=== PATIENT | female | born 1975 | race African-American/Black ===

== ENCOUNTER 2018-11-23 12:10 | Emergency (ER) | payer OTHER ==
[~2018-11-23] VITALS: Ht 167.6 cm; Wt 100.0 kg
[2018-11-23] MEDS ORDERED: ACETAMINOPHEN 325MG TABLET PO ONE (13:30)
[2018-11-23] MEDS ORDERED: CLONIDINE 0.1MG TABLET PO ONE (13:30)
[2018-11-23 13:53] LABS: CLARITY URINE CLEAR (CLEAR); COLOR URINE YELLOW (YELLOW); KETONES URINE NEGATIVE (NEGATIVE); LEUKOCYTE ESTERASE URINE NEGATIVE (NEGATIVE); NITRITE URINE NEGATIVE (NEGATIVE); OCCULT BLOOD URINE NEGATIVE (NEGATIVE); PH URINE 5.5 (4.5-8.0); PROTEIN URINE NEGATIVE (NEGATIVE); SPECIFIC GRAVITY URINE 1.016 (1.005-1.030)
[2018-11-23 14:05] LABS: BASOPHILS % 0.3 % (0.0-2.0); EOSINOPHILS % 1.5 % (0.0-5.0); HEMATOCRIT. 38.7 % (36.0-48.0); HEMOGLOBIN. 12.9 g/dL (12.0-16.0); LYMPHOCYTES % 24.8 % (20.0-50.0); MEAN CORPUSCULAR HEMOGLOBIN 29.7 pg (28.0-32.0); MEAN CORPUSCULAR VOLUME 89.2 fL (81.0-99.0); MEAN PLATELET VOLUME 10.3 fl (7.4-10.4); NEUTROPHILS % 67.4 % (40.0-76.0); PLATELET 137 x1000/uL (130-400); RED BLOOD CELL COUNT 4.34 mill/uL (4.2-5.4); RED CELL DISTRIBUTION WIDTH 14.5 % (11.6-14.6)
[2018-11-23 14:09] LABS: CHLORIDE 107 mEq/L (98-107)
[2018-11-23 14:14] LABS: HCG SCREEN NEGATIVE
[2018-11-23] MEDS ORDERED: IBUPROFEN 600MG TABLET PO ONE (19:45)
[2018-11-23 22:12] VITALS: BP 144/80
== END 2018-11-23 22:22 | disposition short-term general hospital (02) ==
LOC: ER 12:20 → CANBEDREQ 16:45 → ER 22:22
DX: I10 Essential (primary) hypertension (principal); E11.65 Type 2 diabetes mellitus with hyperglycemia; Z79.4 Long term (current) use of insulin; Z79.84 Long term (current) use of oral hypoglycemic drugs
CPT/HCPCS: 36415; 71045; 81025; 82962; 83880; 84484; 84703; 93005; 99285

== ENCOUNTER 2021-08-02 13:36 | Inpatient (IN) | payer OTHER ==
[~2021-08-02] VITALS: Ht 152.4 cm; Wt 158.3 kg
[2021-08-02] MEDS ORDERED: SODIUM CHLORIDE 0.9% 1,000 ML IV ONE (13:45)
[2021-08-02 14:57] LABS: BASOPHILS % 0.3 % (0.0-2.0); EOSINOPHILS % 0.1 % (0.0-5.0); HEMATOCRIT. 41.1 % (36.0-48.0); LYMPHOCYTES % 11.3 % (20.0-50.0); MEAN CORPUSCULAR HEMOGLOBIN 25.7 pg (28.0-32.0); MEAN CORPUSCULAR VOLUME 81.3 fL (81.0-99.0); MONOCYTES % 4.1 % (2.0-8.0); NEUTROPHILS % 84.2 % (40.0-76.0); RED BLOOD CELL COUNT 5.05 mill/uL (4.2-5.4); RED CELL DISTRIBUTION WIDTH 15.7 % (11.6-14.6)
[2021-08-02 15:05] LABS: CHLORIDE 94 mEq/L (98-107)
[2021-08-02 15:22] LABS: PLATELET 147 x1000/uL (130-400)
[2021-08-02] MEDS ORDERED: ETOMIDATE 2MG/ML 10ML VIAL IV ONE (16:15)
[2021-08-02] MEDS ORDERED: MIDAZOLAM HCL 100 MG in DEXT 5% WATER 80 ML IV ONE (16:15)
[2021-08-02] MEDS ORDERED: VECURONIUM BROMIDE 10 MG/VIAL IV ONE ×2 (16:30→18:30)
[2021-08-02] MEDS ORDERED: MIDAZOLAM HCL 100 MG in SODIUM CHLORIDE 0.9% 100 ML IV NR (16:30)
[2021-08-02 17:21] LABS: BG BASE EXCESS -4.1 mmol/L (-2.0-2.0); BG CARBOXYHEMOGLOBIN 0.6 % (0.5-1.5); BG DEOXYHEMOGLOBIN 41.5 % (0.0-5.0); BG HCO3 ACT 23.7 mmol/L (22.0-26.0); BG METHEMOGLOBIN 0.3 % (0.0-1.5); BG OXYGEN SATURATION 58.1 % (92.0-98.5); BG OXYHEMOGLOBIN 57.6 % (94.0-97.0); BG PO2 36.8 mmHg (75.0-100.0); BG SAMPLE SITE RIGHT RADIAL; BG TOTAL HEMOGLOBIN 14.6 g/dL (12.0-18.0); BG VENT MODE VENT - AC
[2021-08-02] MEDS ORDERED: FENTANYL CITRATE/PF 1,000 MCG in SODIUM CHLORIDE 0.9% 80 ML IV PRN (17:30)
[2021-08-02] MEDS ORDERED: PROPOFOL 10MG/ML 100ML 100 ML IV PRN (17:30)
[2021-08-02] MEDS: INSULIN LISPRO 100 UNITS/ML SUBCUT SCH ×2 (17:45→21:45)
[2021-08-02] MEDS ORDERED: LORAZEPAM 0.5MG TABLET PO PRN (17:45)
[2021-08-02] MEDS ORDERED: ONDANSETRON HCL 4MG/2ML INJ IV PRN (17:45)
[2021-08-02] MEDS ORDERED: DIPHENHYDRAMINE 50MG/ML VIAL IV PRN (17:45)
[2021-08-02] MEDS ORDERED: GUAIFENESIN 200MG/10ML SUGAR FREE UDC PO PRN (17:45)
[2021-08-02] MEDS ORDERED: PIPERACILLIN/TAZOBACTAM 3.375 G in DEXTROSE 5% WATER 50 ML IV SCH (17:45)
[2021-08-02] MEDS ORDERED: PHENYLEPHRINE 50 MG in DEXT 5% WATER 245 ML IV PRN (17:45)
[2021-08-02] MEDS ORDERED: DEXAMETHASONE 10 MG/ML VIAL IV SCH (17:45)
[2021-08-02] MEDS ORDERED: NA PHOS,M-B/NA PHOS,DI-BA ENEMA 118ML PR PRN (17:45)
[2021-08-02] MEDS ORDERED: DEXAMETHASONE 10 MG/ML VIAL IV ONE (17:45)
[2021-08-02] MEDS: BLOOD SUGAR DIAGNOSTIC STRIP TEST SCH ×3 (17:45→23:33)
[2021-08-02] MEDS ORDERED: CLONIDINE 0.1MG TABLET PO PRN (17:45)
[2021-08-02] MEDS ORDERED: ACETAMINOPHEN 325MG TABLET PO PRN (17:45)
[2021-08-02] MEDS ORDERED: MAGNESIUM/ALUMINUM HYDROXIDE/SIMETHICONE 30ML UDC PO PRN (17:45)
[2021-08-02] MEDS ORDERED: ACETAMINOPHEN 650MG SUPP PR PRN (17:45)
[2021-08-02] MEDS ORDERED: MORPHINE SULFATE 2 MG/ML CPJ (NOT FOR IM USE) IV PRN (17:45)
[2021-08-02] MEDS ORDERED: IPRATROPIUM/ALBUTEROL 0.5-3(2.5)MG/3ML NEB NEB PRN (17:45)
[2021-08-02] MEDS ORDERED: DOCUSATE SODIUM 100MG CAPSULE PO PRN (17:45)
[2021-08-02] MEDS ORDERED: HYDROCODONE/ACETAMINOPHEN 5/325MG TABLET PO PRN (17:45)
[2021-08-02] MEDS: FAMOTIDINE 20MG/2ML VIAL IV SCH (17:45)
[2021-08-02] MEDS ORDERED: DEXTROSE 50% WATER 50ML SYRINGE IV PRN ×3 (17:45→23:30)
[2021-08-02] MEDS: ASPIRIN 81MG TABLET PO SCH (17:55)
[2021-08-02] MEDS: FENTANYL CITRATE 2,500 MCG in SODIUM CHLORIDE 0.9% 200 ML IV PRN (17:58)
[2021-08-02] MEDS ORDERED: NOREPINEPHRINE 8 MG in DEXTROSE 5% WATER 250 ML IV PRN (18:30)
[2021-08-02] MEDS ORDERED: NOREPINEPHRINE 8MG/250ML PMX 250 ML IV ONE (18:30)
[2021-08-02] MEDS ORDERED: NOREPINEPHRINE 8 MG in DEXTROSE 5% WATER 250 ML IV ONE (18:30)
[2021-08-02] MEDS ORDERED: NALOXONE HCL 0.4MG/ML VIAL IV PRN (18:45)
[2021-08-02] MEDS: ENOXAPARIN 150MG/ML SYR SUBCUT SCH (18:52)
[2021-08-02] MEDS ORDERED: PIPERACILLIN/TAZ 3.375G PREMIX 50 ML IV SCH (19:00)
[2021-08-02] MEDS: IPRATROPIUM/ALBUTEROL 0.5-3(2.5)MG/3ML NEB NEB SCH ×2 (19:57→23:45)
[2021-08-02] MEDS ORDERED: VANCOMYCIN 2,000 MG in DEXT 5% WATER 500 ML IV NR (20:00)
[2021-08-02 21:54] LABS: CREATINE KINASE MB FRACTION 2.4 ng/mL (0.5-3.6)
[2021-08-02 22:02] LABS: D-DIMER 23.4 mg/L FEU (<0.50); INR 1.2; PROTHROMBIN TIME 13.1 sec (9.6-11.0)
[2021-08-02 22:08] LABS: BG BASE EXCESS -4.2 mmol/L (-2.0-2.0); BG CARBOXYHEMOGLOBIN 0.9 % (0.5-1.5); BG DEOXYHEMOGLOBIN 43.3 % (0.0-5.0); BG FRACTION INSPIRED OXYGEN 100; BG HCO3 ACT 21.9 mmol/L (22.0-26.0); BG METHEMOGLOBIN 0.2 % (0.0-1.5); BG OXYGEN SATURATION 56.2 % (92.0-98.5); BG OXYHEMOGLOBIN 55.6 % (94.0-97.0); BG PCO2 44.1 mmHg (35.0-45.0); BG PH 7.314 (7.350-7.450); BG PO2 32.7 mmHg (75.0-100.0); BG SAMPLE SITE RIGHT RADIAL; BG TOTAL HEMOGLOBIN 14.2 g/dL (12.0-18.0); BG VENT MODE VENT - PRVC
[2021-08-02] MEDS ORDERED: LEVOFLOXACIN 500MG PREMIX 100 ML IV SCH (23:00)
[2021-08-02] MEDS ORDERED: INSULIN REGULAR (HUMULIN R) 300UNITS/3ML VIAL IV NR (23:45)
[2021-08-02] MEDS ORDERED: DIGOXIN 500MCG/2ML AMP IV NR (23:45)
[2021-08-03] MEDS ORDERED: PIPERACILLIN/TAZOBACTAM 3.375GM/50ML PREMIX IV SCH
[2021-08-03] MEDS: BLOOD SUGAR DIAGNOSTIC STRIP TEST SCH ×23 (01:01→23:38)
[2021-08-03] MEDS ORDERED: DIGOXIN 500MCG/2ML AMP IV NR (02:00)
[2021-08-03] MEDS: MIDAZOLAM 100MG/100ML PMX 100 ML IV PRN ×2 (05:09→09:46)
[2021-08-03] MEDS: PHENYLEPHRINE 50 MG in DEXT 5% WATER 245 ML IV PRN ×5 (05:10→18:00)
[2021-08-03] MEDS: INSULIN REGULAR 100U/100ML PMX 100 ML IV SCH ×4 (05:11→22:28)
[2021-08-03] MEDS: NOREPINEPHRINE 32 MG in DEXTROSE 5% WATER 250 ML IV PRN ×3 (05:15→14:14)
[2021-08-03 05:30] LABS: BG BASE EXCESS -7.7 mmol/L (-2.0-2.0); BG DEOXYHEMOGLOBIN 56.2 % (0.0-5.0); BG FRACTION INSPIRED OXYGEN 100; BG HCO3 ACT 21.7 mmol/L (22.0-26.0); BG METHEMOGLOBIN 0.3 % (0.0-1.5); BG OXYGEN SATURATION 43.1 % (92.0-98.5); BG OXYHEMOGLOBIN 42.5 % (94.0-97.0); BG PCO2 61.7 mmHg (35.0-45.0); BG PH 7.165 (7.350-7.450); BG PO2 < 30.3 mmHg (75.0-100.0); BG SAMPLE SITE RIGHT RADIAL; BG VENT MODE VENT - prvc
[2021-08-03] MEDS: ENOXAPARIN 150MG/ML SYR SUBCUT SCH (06:00)
[2021-08-03 06:18] LABS: BASOPHILS % 0.1 % (0.0-2.0); HEMATOCRIT. 41.8 % (36.0-48.0); HEMOGLOBIN. 12.9 g/dL (12.0-16.0); LYMPHOCYTES % 11.6 % (20.0-50.0); MEAN CORPUSCULAR HEMOGLOBIN 25.8 pg (28.0-32.0); MEAN CORPUSCULAR VOLUME 84.1 fL (81.0-99.0); MEAN PLATELET VOLUME 9.4 fl (7.4-10.4); NEUTROPHILS % 86.3 % (40.0-76.0); PLATELET 184 x1000/uL (130-400); RED BLOOD CELL COUNT 4.97 mill/uL (4.2-5.4); RED CELL DISTRIBUTION WIDTH 15.7 % (11.6-14.6)
[2021-08-03 06:26] LABS: CHLORIDE 97 mEq/L (98-107)
[2021-08-03 06:38] LABS: CREATINE KINASE MB FRACTION 4.8 ng/mL (0.5-3.6)
[2021-08-03 06:47] LABS: CREATINE KINASE 1254 IU/L (26-192)
[2021-08-03] MEDS ORDERED: SODIUM BICARBONATE 8.4% 1 MEQ/ML 50ML SYR IV SCH (07:00)
[2021-08-03] MEDS ORDERED: DIGOXIN 500MCG/2ML AMP IV SCH (07:00)
[2021-08-03] MEDS: IPRATROPIUM/ALBUTEROL 0.5-3(2.5)MG/3ML NEB NEB SCH ×4 (07:45→23:45)
[2021-08-03] MEDS: FENTANYL CITRATE 2,500 MCG in SODIUM CHLORIDE 0.9% 200 ML IV PRN (07:58)
[2021-08-03 08:51] LABS: BG BASE EXCESS -4.7 mmol/L (-2.0-2.0); BG CARBOXYHEMOGLOBIN 0.7 % (0.5-1.5); BG DEOXYHEMOGLOBIN 44.2 % (0.0-5.0); BG FRACTION INSPIRED OXYGEN 100; BG METHEMOGLOBIN 0.2 % (0.0-1.5); BG OXYGEN SATURATION 55.4 % (92.0-98.5); BG OXYHEMOGLOBIN 54.9 % (94.0-97.0); BG PCO2 68.1 mmHg (35.0-45.0); BG PH 7.182 (7.350-7.450); BG PO2 33.9 mmHg (75.0-100.0); BG SAMPLE SITE LEFT BRACHIAL; BG VENT MODE PRVC
[2021-08-03] MEDS: ASPIRIN 81MG TABLET PO SCH (09:00)
[2021-08-03] MEDS: FAMOTIDINE 20MG/2ML VIAL IV SCH (09:30)
[2021-08-03] MEDS: DEXAMETHASONE 10 MG/ML VIAL IV SCH ×2 (09:30→21:00)
[2021-08-03] MEDS ORDERED: DOPAMINE 400MG/250ML PREMIX 250 ML IV ONE (11:30)
[2021-08-03 12:34] VITALS: BP 80/33
[2021-08-03 13:52] LABS: BG BASE EXCESS -17.3 mmol/L (-2.0-2.0); BG CARBOXYHEMOGLOBIN 0.3 % (0.5-1.5); BG DEOXYHEMOGLOBIN 31.7 % (0.0-5.0); BG FRACTION INSPIRED OXYGEN 100; BG HCO3 ACT 12.9 mmol/L (22.0-26.0); BG METHEMOGLOBIN 0.2 % (0.0-1.5); BG OXYGEN SATURATION 68.1 % (92.0-98.5); BG OXYHEMOGLOBIN 67.8 % (94.0-97.0); BG PCO2 47.4 mmHg (35.0-45.0); BG PH 7.052 (7.350-7.450); BG PO2 46.3 mmHg (75.0-100.0); BG SAMPLE SITE RIGHT RADIAL; BG VENT MODE VENT - PRVC
[2021-08-03] MEDS ORDERED: PIPERACILLIN/TAZOBACTAM 3.375G in DEXT 5% WATER 50ML IV SCH (14:00)
[2021-08-03] MEDS ORDERED: SODIUM BICARBONATE 150 MEQ in SODIUM CHLORIDE 0.45% 1,000 ML IV SCH (14:30)
[2021-08-03] MEDS ORDERED: SODIUM BICARBONATE 8.4% 1 MEQ/ML 50ML SYR IV NR (14:40)
[2021-08-03] MEDS ORDERED: MIDAZOLAM HCL 100 MG in SODIUM CHLORIDE 0.9% 100 ML IV PRN (15:00)
[2021-08-03] MEDS ORDERED: VANCOMYCIN 1500MG in DEXTROSE 5% WATER 250ML IV SCH (15:00)
[2021-08-03] MEDS ORDERED: SODIUM BICARBONATE 150 MEQ in DEXTROSE 5% WATER 1,000 ML IV SCH (15:15)
[2021-08-03] MEDS ORDERED: NOREPINEPHRINE 8MG/250ML PMX 250 ML IV PRN (15:45)
[2021-08-03] MEDS: VASOPRESSIN 20 UNIT in SODIUM CHLORIDE 0.9% 99 ML IV PRN ×2 (16:39→22:27)
[2021-08-03 20:00] VITALS: BP 58/32
[2021-08-03] MEDS ORDERED: MEROPENEM 1,000 MG in SODIUM CHLORIDE 0.9% 100 ML IV SCH (21:00)
[2021-08-03 22:00] VITALS: BP 49/32
[2021-08-03] MEDS: PHENYLEPHRINE 100 MG in DEXT 5% WATER 240 ML IV PRN ×2 (22:28→22:38)
[2021-08-03] MEDS: NOREPINEPHRINE 32 MG in DEXT 5% WATER 218 ML IV PRN ×2 (22:32→22:37)
[2021-08-03 23:00] VITALS: BP 71/35
[2021-08-04] MEDS: BLOOD SUGAR DIAGNOSTIC STRIP TEST SCH ×3 (00:09→02:17)
[2021-08-04] MEDS ORDERED: LEVOFLOXACIN 250MG PREMIX 50 ML IV SCH (06:00)
[2021-08-04] MEDS ORDERED: ENOXAPARIN 150MG/ML SYR SUBCUT SCH (09:00)
[2021-08-04] MEDS ORDERED: EPINEPHRINE 0.1MG/ML (1:10,000) 10ML SYR ONE (10:35)
[2021-08-04] MEDS ORDERED: CALCIUM CHLORIDE 1GM/10ML SYR IV ONE (10:35)
[2021-08-04] MEDS ORDERED: SODIUM BICARBONATE 8.4% 1 MEQ/ML 50ML SYR IV ONE (10:35)
[2021-08-05] MEDS ORDERED: LEVOFLOXACIN 500MG PREMIX 100 ML IV SCH (06:00)
== END 2021-08-04 02:58 | DRG 720 ==
LOC: ER 13:36 → SUPCPDRO 17:30 → MICUSO 17:48 → EDBEDREQSVC 17:56 → EDBEDREQ 17:56 → EDBEDREQTM 17:56 → 7WST 08-03 14:51
PROVIDERS: ADMIT Internal Medicine; ATTEND Internal Medicine
PROC: 5A1945Z Respiratory Ventilation, 24-96 Consecutive Hours (ICD-10-PCS; principal; 2021-08-02)
PROC: 0BH17EZ Insertion of Endotracheal Airway into Trachea, Via Natural or Artificial Opening (ICD-10-PCS; 2021-08-02)
PROC: 5A09357 Assistance with Respiratory Ventilation, Less than 24 Consecutive Hours, Continuous Positive Airway Pressure (ICD-10-PCS; 2021-08-02)
PROC: 02HV33Z Insertion of Infusion Device into Superior Vena Cava, Percutaneous Approach (ICD-10-PCS; 2021-08-02)
PROC: B548ZZA Ultrasonography of Superior Vena Cava, Guidance (ICD-10-PCS; 2021-08-02)
DX: A41.89 Other specified sepsis (principal); J12.82 Pneumonia due to coronavirus disease 2019; R65.21 Severe sepsis with septic shock; G93.41 Metabolic encephalopathy; J80 Acute respiratory distress syndrome; N17.9 Acute kidney failure, unspecified; E11.10 Type 2 diabetes mellitus with ketoacidosis without coma; U07.1 COVID-19; I50.9 Heart failure, unspecified; I13.0 Hypertensive heart and chronic kidney disease with heart failure and stage 1 through stage 4 chronic kidney disease, or unspecified chronic kidney disease; E11.22 Type 2 diabetes mellitus with diabetic chronic kidney disease; N18.9 Chronic kidney disease, unspecified; E66.01 Morbid (severe) obesity due to excess calories; R00.1 Bradycardia, unspecified; F20.9 Schizophrenia, unspecified; I46.9 Cardiac arrest, cause unspecified; R74.01 Elevation of levels of liver transaminase levels; I47.1 Supraventricular tachycardia; R79.89 Other specified abnormal findings of blood chemistry; F31.9 Bipolar disorder, unspecified; E87.5 Hyperkalemia; E87.1 Hypo-osmolality and hyponatremia; Z68.44 Body mass index [BMI] 60.0-69.9, adult; Z98.891 History of uterine scar from previous surgery
CPT/HCPCS: 36415; 36600; 71045; 80053; 82375; 82550; 82553; 82805; 82962; 83036; 83605; 83880; 84145; 84443; 84484; 85025; 85379; 85384; 86140; 87186; 87426; 93970; 94002; 94003; 94660; 99285; J1100; J1160; J1265; J1650; J1815; J1956; J2185; J2250; J2370; J2704; J3010; J3370; J3490; J7030; J7040; J7050; J7060; J7070; A4315